=== PATIENT | male | born 1975 | race Caucasian/White ===

== ENCOUNTER 2024-12-09 12:15 | Emergency (ER) | payer MEDICAID ==
[2024-12-09] MEDS: Ondansetron 4 MG/2 ML SDV IVPUSH ONE ×2 (12:40→12:42)
[2024-12-09] MEDS: Insulin Regular, Human 100 Units/ML 10 ML Vial IVPUSH ONE (12:46)
[2024-12-09 12:47] LABS: BASOPHILS ABSOLUTE AUTO 0.2 K/mm3 (0.0-0.2); BASOPHILS PERCENT AUTO 0.8 % (0.0-1.0); EOSINOPHILS ABSOLUTE AUTO 0.1 K/mm3 (0.0-0.4); EOSINOPHILS PERCENT AUTO 0.5 % (0.0-6.0); IMMATURE GRAN ABSOLUTE AUTO 0.11 K/mm3 (0.00-0.05); IMMATURE GRAN PERCENT AUTO 0.6 % (0.0-0.4); LYMPHOCYTES ABSOLUTE AUTO 2.9 K/mm3 (1.0-4.8); LYMPHOCYTES PERCENT AUTO 14.5 % (24.0-44.0); MEAN PLATELET VOLUME 11.1 fl (9.4-12.4); MONOCYTES ABSOLUTE AUTO 1.0 K/mm3 (0.0-0.8); MONOCYTES PERCENT AUTO 5.1 % (0.0-8.0); NEUTROPHILS ABSOLUTE AUTO 15.6 K/mm3 (1.8-7.7); NEUTROPHILS PERCENT AUTO 78.5 % (41.0-71.0); NRBC ABSOLUTE 0.00 (0.00-0.02); NRBC PERCENT 0.0 % (0.0-0.2); PLATELET COUNT,PLT 328 K/mm3 (150-400); RED BLOOD CELL COUNT 5.08 M/mm3 (4.52-5.90); WHITE BLOOD CELL COUNT,WBC 19.84 K/mm3 (3.9-11.3)
[2024-12-09] MEDS: Insulin Regular, Human 100 Units/ML 3 ML Vial IV STA (12:47)
[2024-12-09] MEDS ORDERED: Sodium Chloride 0.9% 10 ML Syringe FLUSH PRN (12:51)
[2024-12-09 13:10] LABS: A/G RATIO 1.4 (1-2); ALANINE AMINOTRANSFERASE,ALT 28.0 U/L (16-63); ASPARTATE AMNIOTRANSFERASE,AST 27.0 U/L (15-37); BILIRUBIN TOTAL 0.9 mg/dL (0.2-1.0); BLOOD UREA NITROGEN,BUN 14.0 mg/dL (7-18); CARBON DIOXIDE,CO2 24.0 mEq/L (21-32); CHLORIDE,CL 97.0 mEq/L (98-107); CREATININE 1.2 mg/dL (0.7-1.3); EST CRCL DRUG DOSING (CG) 95.91 mL/min; ESTIMATED GFR 75.0 mL/min (>60); POTASSIUM,K 5.0 mEq/L (3.5-5.1); PROTEIN TOTAL,TP 7.3 g/dl (6.4-8.2); SODIUM,NA 135.0 mEq/L (136-145)
[2024-12-09 13:19] LABS: GLUCOSE RANDOM 492.0 mg/dL (70-99)
[2024-12-09 13:52] LABS: BASE EXCESS ARTERIAL -1.7 (-2-2.0); BICARBONATE,ARTERIAL 23 meq/L (22.0-26.0); O2 SATURATION ARTERIAL 98.3 % (96.0-97.0); PCO2 ARTERIAL 38.0 mmHg (35.0-45.0); PO2 ARTERIAL 83.0 mmHg (80.0-100.0)
[2024-12-09] MEDS: Insulin Regular, Human 100 Units/ML 10 ML Vial IV ONE (15:07)
[2024-12-09] MEDS: Insulin Regular, Human 100 Units/ML 3 ML Vial IV ONE (15:10)
== END 2024-12-09 16:20 | disposition home or self-care (01) ==
LOC: JD.ED 12:15
DX: E11.65 Type 2 diabetes mellitus with hyperglycemia (principal); E86.0 Dehydration; Z79.899 Other long term (current) drug therapy
CPT/HCPCS: 36415; 36600; 80053; 82010; 82803; 82947; 83690; 83735; 85025; 93010; 96361; 96365; 96375; 99284; 99284-25; J1815-GY; J2405; J3475; J7030